=== PATIENT | female | born 1980 | race Caucasian/White ===

== ENCOUNTER → 2025-04-25 07:48 | Outpatient (REF) | payer BC, SELFPAY | LOC: RAD 07:48 | PROVIDERS: ATTENDING PHYSICIAN Internal Medicine; FAMILY PHYSICIAN Internal Medicine | DX: K21.9 Gastro-esophageal reflux disease without esophagitis (principal) | CPT/HCPCS: 78264; A9541 ==

== ENCOUNTER → 2025-05-03 09:15 | Outpatient (REF) | payer BC, SELFPAY | LOC: RAD 09:15 | PROVIDERS: ATTENDING PHYSICIAN Internal Medicine; FAMILY PHYSICIAN Internal Medicine | DX: R10.84 Generalized abdominal pain (principal); K21.9 Gastro-esophageal reflux disease without esophagitis; K52.9 Noninfective gastroenteritis and colitis, unspecified | CPT/HCPCS: 74246; 74248 ==